=== PATIENT | male | born 1950 | race Caucasian/White ===

== ENCOUNTER → 2018-06-20 | Outpatient (CLI) | payer OTHER | LOC: BMCIMAGING 13:33 | PROVIDERS: ATTEND Family Medicine | DX: M25.511 Pain in right shoulder (principal) ==

== ENCOUNTER → 2018-09-20 | Outpatient (CLI) | payer BC, OTHER | LOC: BMCIMAGING 07:16 | PROVIDERS: ATTEND Internal Medicine | DX: R94.5 Abnormal results of liver function studies (principal) ==